=== PATIENT | male | born 1980 | race Caucasian/White ===

== ENCOUNTER 2019-02-09 17:39 | Emergency (ER) | payer OTHER, SELFPAY ==
[2019-02-09 17:41] VITALS: BP 137/79; PULSE 78; RESP 17; TEMP 21.6; O2SAT 98; BMI 26.1
--- NOTE | 2019-02-09 17:54 | RAD_ITS ---
STUDY: X-RAY CHEST REASON FOR EXAM: Male, 38 years old. Chest pain TECHNIQUE: Single frontal view of the chest. COMPARISON: 03/06/2015 FINDINGS: The lungs are clear and expanded. There is no demonstrated pleural abnormality. Normal size heart. Normal mediastinum and luis. Normal visualized pulmonary arteries. Normal visualized aortic arch and descending thoracic aorta. Normal visualized thoracic spine. Normal visualized ribs, clavicles, and shoulders. There is no demonstrated abnormality of the visualized soft tissue structures of the upper abdomen. RAD/Chest 1 View (Portable) IMPRESSION: Normal x-ray examination of the chest. Electronically Signed: Will Landa MD at 18:19 EDT Tel , Service support ,
--- NOTE | 2019-02-09 17:54 | EKG12_ITS ---
Test Reason : CP, PALPS Blood Pressure : / mmHG Vent. Rate : 060 BPM Atrial Rate : 060 BPM P-R Int : 142 ms QRS Dur : 082 ms QT Int : 386 ms P-R-T Axes : 041 030 035 degrees QTc Int : 386 ms Normal sinus rhythm Normal ECG Confirmed by KRISTA EAST, RENETTA ([id number]), telegraph editor NATHANAEL REMY ([id number]) on 02/11/2019 11:02:51 AM Referred By: SEEMA Confirmed By:RENETTA VELASCO MD
[2019-02-09 18:02] VITALS: BP 134/79; PULSE 77; RESP 19; O2SAT 99
[2019-02-09] MEDS: 0.9% Normal Saline 1,000 ML 150 ML IV (18:02)
[2019-02-09] MEDS: Aspirin 81 MG TAB.CHEW 324 MG PO (18:02)
[2019-02-09 18:11] LABS: Absolute Lymphocyte Count 2.15 X10^3/ul (0.83-4.51); Absolute Neutrophil Count 3.5 X10^3/uL (2.0-7.7); Basophil# 0.02 X10^3/uL; Basophil% 0.3 % (0-1); Eosinophils% 3.1 % (0-5); Hematocrit 48.4 % (40-54); Hemoglobin 16.7 g/dl (13.0-16.5); Lymphocyte # 2.15 X10^3/ul (4.0); Lymphocyte % 33.7 % (19-41); Mean Corp Hgb Conc 34.5 g/gl (32-36); Mean Corpuscular Hgb 31.4 pg (27.0-32.0); Mean Platelet Vol. 10.2 fl (6.2-12.0); Monocyte# 0.47 X10^3/uL; Monocyte% 7.4 % (0-10); Neutrophil # 3.52 X10^3/uL (2.7-7.7); Neutrophil % 55.2 % (47-70); Platelet Count 208 K/mm3 (150-450); RBC Distribution Width CV 12.5 % (11.6-14.6); RBC Distribution Width SD 41.7 fl (35.1-43.9); Red Blood Count 5.32 M/mm3 (4.6-6.2); White Blood Count 6.4 K/mm3 (4.4-11.0)
[2019-02-09 18:13] LABS: POSITIVE COUNT NO; POSITIVE DIFFERENTIAL NO; POSITIVE MORPHOLOGY NO
[2019-02-09 18:22] LABS: Anion Gap 5 (5-15); BUN 13 mg/dL (7-18); BUN/Creat Ratio 9.9 RATIO (10-20); Calcium,Total 9.1 mg/dL (8.5-10.1); Chloride 104 mmol/L (98-107); Creatinine, Serum 1.31 mg/dL (0.70-1.30); D-Dimer Quantitative (DVT/PE) < 0.27 FEU/ug/m (0.27-0.49); EST Glomerular Filtration Rate 65 mL/min (>60); Est Glom Filt Rate - Afr Amer 78 mL/min (>60); Estimated Creatinine Clearance 88.02 ml/min; Glucose 87 mg/dL (74-106); Magnesium 2.4 mg/dL (1.6-2.6); Potassium 3.8 mmol/L (3.5-5.1); Sodium Level 139 mmol/L (136-145)
--- NOTE | 2019-02-09 19:02 | ED.VISSUMM ---
- ER Visit Summary Date of Service: 02/09/19 Chief Complaint: [Chest pain] History of Present Illness: The patient is a 38 M [presents the emergency department with complaint of chest pain that started about a month ago. Patient describes an intermittent sharp stabbing pain that can last minutes up to 10 minutes at a time. Patient states that he has been at increased stress at work. Patient states he had similar episode several years ago for which she was evaluated in the emergency department. Patient denies exertional symptoms. Patient states when the episode first started a week ago he had some mild dizziness and some nausea associated with it. Patient denies recent travel or surgery. He has no family history of heart disease. He does not have any medical history otherwise.] Physical Examination: [HEENT-PERRLA, EOMI. Cranial nerves II through XII grossly intact. TMs clear. Mucous membranes moist. No adenopathy. Cardiovascular-regular rate and rhythm without murmur or ectopy Lungs-clear to auscultation, chest wall stable without crepitus or subcu emphysema Abdomen-normoactive bowel sounds, soft, nontender, no rebound or rigidity, no peritoneal signs. Extremities-intact ?4, normal range of motion, normal pulses, atraumatic] Test Results: [EKG obtained arrival shows sinus rhythm with a ventricular rate of 60 bpm with no acute I segment changes. CBC with differential was unremarkable other than slightly elevated hemoglobin of 16.7. Chemistries were unremarkable. BUN was 13 and creatinine 1.31. Troponin was less than 0.015. D-dimer was normal at less than 0.27. Chest x-ray was normal.] Emergency Department Course and Treatment: [No treatment was indicated at this time. Patient was essentially pain-free on arrival.] Treatment Plan: [Patient will be given a prescription for as needed Ativan. Etiology of his chest pains unclear however I suspect there may be an anxiety component. Patient's JORGE risk score was a 0.] Disposition: [Patient will be discharged home and advised to follow-up with primary care physician within next 3-5 days.] Impression: [Chest [id number] uncertain] This note was generated with [employer] software. It may contain incorrect words, spelling, and punctuation that were not noted in review of the chart prior to signing ED Disposition - Plan for ED Patient: Referrals: Jason Fontaine MD [Primary Care Provider] -
--- NOTE | 2019-02-09 19:04 | ED.DEP ---
ED Disposition - Plan for ED Patient: Instructions: ED Chest Pain Atypical Unkn Cause, ED Stress React Prescriptions: Lorazepam [Ativan] 1 mg PO TID PRN #10 tab PRN Reason: Anxiety Referrals: Jason Fontaine MD [Primary Care Provider] - 3-5 Days
--- NOTE | 2019-02-09 19:05 | ED.DCSUM_ITS ---
- ER Visit Summary Date of Service: 02/09/19 Chief Complaint: [Chest pain] History of Present Illness: The patient is a 38 M [presents the emergency department with complaint of chest pain that started about a month ago. Patient describes an intermittent sharp stabbing pain that can last minutes up to 10 m inutes at a time. Patient states that he has been at increased stress at work. Patient states he had similar episode several years ago for which she was evaluated in the emergency department. Patient denies exertional symptoms. Patient states when the episode first started a week ago he had some mild dizziness and some nausea associated with it. Patient denies recent travel or surgery. He has no family history of heart disease. He does not have any medical history otherwise.] Physical Examination: [HEENT-PERRLA, EOMI. Cranial nerves II through XII grossly intact. TMs clear. Mucous membranes moist. No adenopathy. Cardiovascular-regular rate and rhythm without murmur or ectopy Lungs-clear to auscultation, chest wall stable without crepitus or subcu emphysema Abdomen-normoactive bowel sounds, soft, nontender, no rebound or rigidity, no peritoneal signs. Extremities-intact ?4, normal range of motion, normal pulses, atraumatic] Test Results: [EKG obtained arrival shows sinus rhythm with a ventricular rate of 60 bpm with no acute I segment changes. CBC with differential was unremarkable other than slightly elevated hemoglobin of 16.7. Chemistries were unremarkable. BUN was 13 and creatinine 1.31. Troponin was less than 0.015. D-dimer was normal at less than 0.27. Chest x-ray was normal.] Emergency Department Course and Treatment: [No treatment was indicated at this time. Patient was essentially pain-free on arrival.] Treatment Plan: [Patient will be given a prescription for as needed Ativan. Etiology of his chest pains unclear however I suspect there may be an anxiety component. Patient's JORGE risk score was a 0.] Disposition: [Patient will be discharged home and advised to follow-up with primary care physician within next 3-5 days.] Impression: [Chest [id number] uncertain] This note was generated with [employer] software. It may contain incorrect words, spelling, and punctuation that were not noted in review of the chart prior to signing ED Disposition - Plan for ED Patient: Referrals: Jason Fontaine MD [Primary Care Provider] -
[2019-02-09 19:15] VITALS: BP 129/79; PULSE 60; RESP 14; O2SAT 95
== END 2019-02-09 19:16 | disposition home or self-care (01) ==
LOC: ED 18:20
PROVIDERS: Emergency Provider Emergency Medicine; Family Provider Family Medicine; PCP Family Medicine
DX: R07.89 Other chest pain (principal); Z87.891 Personal history of nicotine dependence
CPT/HCPCS: 71045; 80048; 83735; 84484; 85025; 85379; 93005; 96360; 99284; J7030